=== PATIENT | male | born 1945 | race Caucasian/White ===

== ENCOUNTER 2018-12-20 13:31 | Outpatient (CLI) | payer MEDICARE, BC, SELFPAY ==
[2018-12-21 19:40] LABS: Alternaria Tenuis IgE <0.35 kU/L; Aspergillus Fumigatus IgE <0.35 kU/L; Cat Epithelium IgE 6.38 kU/L; Cladosporium IgE <0.35 kU/L; Cocklebur IgE <0.35 kU/L; D Farinae IgE 14.9 kU/L; D Pteronyssinus IgE 13.5 kU/L; Dog Dander IgE 4.51 kU/L; Elm IgE <0.35 kU/L; Giant Ragweed IgE <0.35 kU/L; Lamb's Quarter IgE <0.35 kU/L; Oak IgE <0.35 kU/L; Penicillium chrysogenum IgE <0.35 kU/L; Short Ragweed IgE <0.35 kU/L; Silver Birch IgE <0.35 kU/L; Wormwood IgE <0.35 kU/L
[2018-12-21 20:11] LABS: Cockroach IgE <0.35 kU/L; Cottonwood IgE <0.35 kU/L; Eastern Sycamore IgE <0.35 kU/L; Epicoccum purpurascens IgE <0.35 kU/L; Red Sorrel IgE <0.35 kU/L; Rough Pigweed IgE <0.35 kU/L; Stemphyllium IgE <0.35 kU/L; Walnut Tree IgE <0.35 kU/L
[2018-12-23 17:07] LABS: CLASS 0; Cedar Red IgE <0.10 kU/L (<0.35); Fusarium oxysporum/vasinfectum <0.35 kU/L (<0.35); Rhodotorula IgE <0.35 kU/L (<0.35)
== END 2018-12-20 13:51 ==
PROVIDERS: PCP Internal Medicine; Visit Provider Otolaryngology Otolaryngology/Facial Plastic Surgery
DX: J31.0 Chronic rhinitis (principal)
CPT/HCPCS: 36415; 86003

== ENCOUNTER 2021-06-19 01:13 | Outpatient (CLI) | payer MEDICARE, OTHER, SELFPAY ==
--- NOTE | 2021-06-19 | DI.US_ITS ---
Exam(s) US PELVIS LIMITED EXAM: US PELVIS LIMITED CLINICAL HISTORY: URINARY FREQUENCY,? URINARY RETENTION,? POST VOID RESIDUAL. TECHNIQUE: Limited pelvic ultrasound was performed. COMPARISON: No exams were available for comparison FINDINGS: Urinary bladder wall is diffusely trabeculated. No obvious diverticuli. Prevoid volume in the urinary bladder is 248 cc and postvoid volume is 146 cc.. Prostate gland is enlarged (38 cc) and lobulated, projecting into the bladder base. Prostate gland m easures approximately 5 x 3.4 x 4.2 cm. IMPRESSION: 1. Significantly enlarged and lobulated prostate gland. 2. Trabeculated urinary bladder with increased postvoid residual (146 cc). DATA REPOSITORY:
== END 2021-06-19 01:33 ==
PROVIDERS: PCP Internal Medicine; Visit Provider Specialist
DX: N40.0 Benign prostatic hyperplasia without lower urinary tract symptoms (principal); N39.43 Post-void dribbling
CPT/HCPCS: 76857

== ENCOUNTER 2021-08-19 13:21 | Outpatient (REF) | payer MEDICARE, OTHER, SELFPAY ==
[2021-08-19 14:22] LABS: Abs Immature Grans 0.02 10^3/uL (0.0-0.06); Absolute Basophil Count 0.07 10^3/uL (0.0-0.2); Absolute Eosinophil Count 0.29 10^3/uL (0.0-0.7); Absolute Monocyte Count 0.99 10^3/uL (0.1-0.8); Absolute Neutrophil Count 3.86 10^3/uL (1.2-6.7); HCT 40.6 % (40.0-50.0); HGB 13.4 g/dL (13.5-17.5); Immature Grans % 0.3; Lymphocytes % 28.6; MCH 30.1 pg (27.0-33.0); MCV 91.2 fL (80-95); MPV 10.8 fL (8.0-11.0); Monocytes % 13.5; Neutrophils % 52.6; Nucleated RBC 0 %; Platelet Count 243 10^3/uL (130-400); RBC 4.45 10^6/uL (4.36-5.78); RDW 14.4 % (11.8-14.1); RDW-SD 48.8 fL; WBC 7.33 10^3/uL (4.4-10.8)
[2021-08-19 14:28] LABS: ALT 33 U/L (16-63); AST 21 U/L (15-37); Albumin 3.5 g/dL (3.4-5.0); Alkaline Phosphatase 57 U/L (46-116); Anion Gap 3.6 mmol/L (3-11); BUN 16 mg/dL (7-18); Bilirubin, Total 0.4 mg/dL (0.2-1.0); CO2 34.4 mmol/L (21.0-32.0); CREATININE 1.2 mg/dL (0.70-1.30); Calcium 9.7 mg/dL (8.5-10.1); Chloride 105 mmol/L (98-107); Estimated GFR 58.71 (mL/min/1.73m2); Glucose 76 mg/dL (74-106); Potassium 4.3 mmol/L (3.5-5.1); Sodium 143 mmol/L (136-145); Total Protein 6.9 g/dL (6.4-8.2)
[2021-08-19 14:29] LABS: INR 1.1 (0.9-1.1)
== END 2021-08-19 13:22 | disposition home or self-care (01) ==
LOC: NCHCN 13:21
PROVIDERS: PCP Internal Medicine; Visit Provider Nurse Practitioner Family
DX: Z01.818 Encounter for other preprocedural examination (principal)
CPT/HCPCS: 80053; 85025; 85610